=== PATIENT | male | born 1960 | race Hispanic/Latino ===

== ENCOUNTER 2024-10-24 18:46 | Emergency (ER) | payer OTHER ==
[~2024-10-24] VITALS: Ht 167.6 cm; Wt 68.0 kg
[2024-10-24 19:00] VITALS: TEMP 98.2
[2024-10-24 19:45] LABS: CORONAVIRUS COVID-19 AG NEGATIVE (NEGATIVE); INFLUENZA A AG NEGATIVE (NEGATIVE); INFLUENZA B AG NEGATIVE (NEGATIVE)
[2024-10-24 21:12] VITALS: PULSE 83; RESP 20
[2024-10-24] MEDS ORDERED: MEDROL4 M2 PO (22:40)
[2024-10-24] MEDS ORDERED: DOXYCYCLINE HY100 MG PO (22:40)
[2024-10-24 22:48] VITALS: BP 110/78; PULSE 83; RESP 20; TEMP 98.6; O2SAT 99
== END 2024-10-24 22:40 | disposition home or self-care (01) ==
LOC: ER 18:55
DX: R05.9 Cough, unspecified (principal); J18.9 Pneumonia, unspecified organism; Z11.52 Encounter for screening for COVID-19; F17.210 Nicotine dependence, cigarettes, uncomplicated
CPT/HCPCS: 71046; 71250; 99283